=== PATIENT | female | born 2000 | race Caucasian/White ===

== ENCOUNTER 2020-03-19 19:22 | Emergency (ER) | payer OTHER, SELFPAY ==
--- NOTE | 2020-03-19 | XR_ITS ---
EXAMINATION: XR KNEE, RIGHT CLINICAL INFORMATION: [place] pop in knee pain and swelling COMPARISON: None TECHNIQUE: Four views of the right knee. FINDINGS: There is a joint effusion. Bones and joints are otherwise normal. No fracture. The surrounding soft tissues are normal. XR/XR knee RT 4V IMPRESSION: Joint effusion
[2020-03-19 19:39] VITALS: BP 115/60; PULSE 93; RESP 16; TEMP 36.9; O2SAT 98; BMI 31.1
--- NOTE | 2020-03-19 20:48 | ED.LOWEXIN ---
HPI - Extremity Injury (Lower) General Chief Complaint: Extremity Injury, Lower Stated Complaint: KNEE PAIN Time Seen by Provider: 03/19/20 20:48 Source: patient Mode of arrival: ambulatory History of Present Illness HPI Narrative: 19-year-old female presenting to ED complaining of right knee pain and swelling since Friday. Admits cracksknees often, however felt knee pop Friday, and since has been swollen and increasingly painful with difficulty ambulating secondary to pain. Denies direct trauma/injury, numbness/tingling, fever/chills complaint: knee injury Related Data Allergies Allergy/AdvReac Type Severity Reaction Status Date / Time ENVIRONMENTAL Allergy Unknown RUNNY Uncoded 01/06/20 16:55 NOSE, ITCHY EYES Review of Systems Review of Systems: Constitutional: No Weight loss, No Fever, No Chills Musculoskeletal: + joint pain, No Myalgias, + Joint Swelling Skin: No Skin Lesions, No rash Neuro: No Weakness, No Numbness Yes all other systems are reviewed and are negative PMFSH Past Medical History Attestation statement: The following information was validated with the patient. Medical History (Updated 03/19/20 @ 20:50 by ANDREIA Martinez) Asthma Surgical History (Updated 03/19/20 @ 19:43 by Federica Kessler) History of ankle surgery Social History Social History Smoking Status: Never smoker Use of substances other than those prescribed or required for medical reasons: No Advance Directives: No Physical Exam Vital Signs: Vital Signs: Last Vital Signs Temp 98.4 F 03/19/20 19:39 Pulse 93 03/19/20 19:39 Resp 16 03/19/20 19:39 BP 115/60 03/19/20 19:39 Pulse Ox 98 03/19/20 19:39 Body Mass Index 31.1 Const: General: cooperative and healthy appearing Orientation/consciousness: patient oriented x3 Limitations: no limitations HENMT: Head: Yes normal to inspection Ears: hearing grossly normal bilaterally General nose exam: Normal external nose present Face and sinus: Yes normal facial exam Eyes: General: appearance normal, both eyes and all related structures EOM: EOMs intact bilaterally Neck: Neck: Yes normal visual inspection Resp: Effort & Inspection: normal respiratory effort Cardio: Peripheral pulses: dorsalis pedis present : General: Yes no CVA tenderness Back/Spine/Pelvis: Back: no CVA tenderness Skin: Rashes: no rashes Wounds: no wounds Neuro: General: patient oriented x3 Gait exam (Neuro): Normal gait present Extrem: Other: + right knee with appreciable effusion/swelling. +ttp > medial joint line. Decreased flexion secondary to pain/swelling. Extension intact. No cellulitis/fluctuance/induration. NV intact Course Course Course Narrative: -knee x-ray showing joint effusion, no fracture or dislocation. Patient placed in You wrap in the ED for comfort. Is to follow-up with orthopedics MDM - Extremity Injury (Lower) MDM Narrative Medical decision making narrative: Concern for ligamental/tendon or meniscal injury. Low concern for fracture/dislocation. Low concern for septic joint Discharge Plan Discharge Clinical Impression: Effusion of knee joint right Patient Disposition: Home, Self-Care Instructions: Swollen Knee Joint (ED) Additional Instructions: Your x-ray shows a knee effusion, no fracture or dislocation Wear You wrap at home for comfort, do not wear in shower Ice and elevate her knee, avoid excessive bending/standing Follow-up with wildland fire fighter specialist You likely an MRI If swelling persists or worsens, you develop weakness, fever, chills, or knee becomes discolored return to the ED Referrals: Tiffany Mast PA-C [Physician [facility]] - 1 week
== END 2020-03-19 21:01 | disposition home or self-care (01) ==
PROVIDERS: Emergency Provider Emergency Medicine
DX: M25.561 Pain in right knee (principal); M25.461 Effusion, right knee
CPT/HCPCS: 73564; 99283